=== PATIENT | male | born 1965 | race Caucasian/White ===

== ENCOUNTER 2020-12-05 11:56 | Emergency (ER) | payer BC ==
[2020-12-05 14:31] LABS: HEMOGLOBIN 15.2 gm/dl (14.0-17.5); RED BLOOD COUNT 5.55 M/UL (4.20-5.50); WHITE BLOOD COUNT 7.2 K/UL (4.5-11.0)
[2020-12-05 14:58] LABS: BUN/CREATININE RATIO 14 (0-10)
[2020-12-05] MEDS ORDERED: DECADRON6 MG PO (16:54)
[2020-12-05] MEDS ORDERED: OMNICEF 300 MG300 MG PO (16:54)
[2020-12-05] MEDS ORDERED: ZITHROMAX250 MG PO (16:54)
== END 2020-12-05 18:08 | disposition home or self-care (01) ==
LOC: ER1 11:56
DX: U07.1 COVID-19 (principal); J12.82 Pneumonia due to coronavirus disease 2019; F17.200 Nicotine dependence, unspecified, uncomplicated
CPT/HCPCS: 71045; 80053; 82550; 82553; 83874; 84484; 85025; 93005; 99284